=== PATIENT | male | born 1995 | race Caucasian/White ===

== ENCOUNTER 2020-01-23 07:55 | Day surgery (SDC) | payer BC ==
[~2020-01-23] VITALS: Ht 198.1 cm; Wt 140.6 kg
[2020-01-23 08:48] VITALS: BP 133/80; PULSE 85; TEMP 98.4
[2020-01-23] MEDS ORDERED: ZYRTEC 10MG10 MG PO (08:48)
[2020-01-23 09:40] VITALS: BP 130/93; PULSE 72; TEMP 97.3
[2020-01-23 09:55] VITALS: BP 128/91; PULSE 73
[2020-01-23 10:10] VITALS: BP 127/86; PULSE 66
--- NOTE | 2020-01-23 10:36 | NUR ---
0940 ARRIVED TO [facility] [place] [facility]IA [facility]. PTIENT AMBULATED TO CHAIR WITH A STEADY GAIT. WARM BLANKET GIVEN FOR COMFORT. VSS. PATIENT REQUESTED COFFEE WITH CREAMER AND [employer] MUFFIN. 0950 PATIENT DRINKING COFFEE AND EATING BLUEBERRY MUFFIN. DR. STANLEY IN ROOM SPEAKING WITH PATIENT REGARDING FINDINGS ON COLONOSCOPY. 1010 PATIENT TOLERATED PO WELL. DENIES COMPLAINT.
--- NOTE | 2020-01-23 12:34 | NUR ---
PT A/OX3. PT DENIES PAIN OR NAUSEA AT THIS TIME. #22 DC'D TO RIGHT WRIST. TOLERATED WELL. PT DISCHARGED TO FAMILY VEHICLE, [employer] DRIVING. DISCHARGE PAPERS SIGNED. BELONGINGS SENT WITH PT.
== END 2020-01-23 10:20 | disposition home or self-care (01) ==
LOC: SDCO 07:55
DX: Z12.11 Encounter for screening for malignant neoplasm of colon (principal); D12.5 Benign neoplasm of sigmoid colon; K64.0 First degree hemorrhoids; K62.6 Ulcer of anus and rectum; K62.89 Other specified diseases of anus and rectum; E66.9 Obesity, unspecified; G47.33 Obstructive sleep apnea (adult) (pediatric); J30.2 Other seasonal allergic rhinitis; Z80.0 Family history of malignant neoplasm of digestive organs; Z86.010 Personal history of colon polyps; Z83.71 Family history of colonic polyps; Z88.0 Allergy status to penicillin; Z87.891 Personal history of nicotine dependence; Z20.828 Contact with and (suspected) exposure to other viral communicable diseases
CPT/HCPCS: J2704; J3010; J7030